=== PATIENT | female | born 1955 | race Caucasian/White ===

== ENCOUNTER 2023-09-16 10:22 | Outpatient (REF) | payer MEDICARE, MEDICAID, SELFPAY ==
--- NOTE | ~2023-09-16 | XR_ITS ---
EXAMINATION: XR FOOT, LEFT CLINICAL INFORMATION: Left foot pain and swelling for 5 days without injury COMPARISON: None available. TECHNIQUE: AP, lateral, and oblique views of the left foot. FINDINGS: The bones and soft tissues are unremarkable with the exception of a plantar calcaneal spur and some mild enthesopathy at the insertion of the Achilles tendon. No fracture. Alignment is anatomic. Joint spaces are maintained. XR/XR foot LT min 3V IMPRESSION: No acute finding. Incidental note made of a plantar calcaneal spur and some mild enthesopathy at the insertion of the Achilles tendon.
[2023-09-16 12:16] LABS: Uric Acid 5.4 mg/dL (2.4-5.7)
== END 2023-09-16 10:23 | disposition home or self-care (01) ==
LOC: HO.HHCL 10:22
PROVIDERS: Visit Provider Nurse Practitioner Family
DX: M79.672 Pain in left foot (principal)
CPT/HCPCS: 36415; 73630; 84550

== ENCOUNTER 2023-10-20 18:09 | Outpatient (REF) | payer MEDICARE, MEDICAID, SELFPAY ==
[2023-10-20 18:37] LABS: Appearance Urine Clear; Color Urine Yellow; Glucose Urine UA Negative (Negative); Leukocyte Esterase Urine Negative (Negative); Nitrite Urine Negative (Negative); PH 7.5 (5.0-9.0); Specific Gravity - Urine <= 1.005 (1.005-1.025); Urine Blood Negative (Negative); Urine Ketones Negative (Negative); Urine Protein Negative (Neg-Trace)
== END 2023-10-20 18:10 | disposition home or self-care (01) ==
LOC: HO.HHCLNP 18:09
PROVIDERS: Visit Provider Emergency Medicine
DX: R39.9 Unspecified symptoms and signs involving the genitourinary system (principal)
CPT/HCPCS: 81003

== ENCOUNTER 2024-04-11 10:56 | Outpatient (REF) | payer MEDICARE, MEDICAID, SELFPAY ==
[2024-04-11 14:07] LABS: Creatinine Urine 227.01 mg/dL; Microalbum/Creatinine Ratio Ur 7.9 ug/mg cr (<30)
[2024-04-11 14:10] LABS: Alanine Aminotransferase 17 U/L (0-31); Albumin Level 4.6 g/dL (3.5-5.0); Alkaline Phosphatase 79 U/L (39-117); Anion Gap 14 (12-20); Aspartate Amino Transferase 20 U/L (5-31); Bilirubin Total 0.4 mg/dL (0.0-1.0); Blood Urea Nitrogen 7 mg/dL (9-16); Calcium 10.1 mg/dL (8.4-10.2); Carbon Dioxide 27 mmol/L (22-29); Chloride 104 mmol/L (96-108); Cholesterol 137 mg/dL (<200); Estimated Glomerular Filt Rate > 60; Glucose Random 114 mg/dL (60-115); HDL Cholesterol 75 mg/dL (>40); LDL Cholesterol Calculated 48 mg/dL (<100); Potassium 3.9 mmol/L (3.3-5.1); Sodium 141 mmol/L (135-145); Total Protein 7.3 g/dL (6.5-8.0); Triglycerides 73 mg/dL (<150)
[2024-04-11 14:35] LABS: Reflex LDLD? No
== END 2024-04-11 10:57 | disposition home or self-care (01) ==
LOC: HO.HHCL 10:56
PROVIDERS: Visit Provider Internal Medicine
DX: R10.11 Right upper quadrant pain (principal); E11.9 Type 2 diabetes mellitus without complications
CPT/HCPCS: 36415; 80053; 80061; 82043; 82570

== ENCOUNTER 2024-11-21 14:29 | Outpatient (REF) | payer MEDICARE, MEDICAID, SELFPAY ==
[2024-11-21 16:08] LABS: Appearance Urine Clear; Color Urine Yellow; Glucose Urine UA Negative (Negative); Leukocyte Esterase Urine Small (1+) (Negative); Nitrite Urine Negative (Negative); Specific Gravity - Urine <= 1.005 (1.005-1.025); UMIC TRIGGER UACC YES; Urine Blood Negative (Negative); Urine Ketones Negative (Negative); Urine Protein Negative (Neg-Trace)
[2024-11-21 16:10] LABS: Bacteria Urine 4+ (None Seen); Hyaline Casts Urine 0-2 /LPF (0-2); RBC Urine 0-2 /HPF (0-2); Squamous Epithelial Cell Urine 0-2 /HPF (0-2); UACC Culture Trigger YES
== END 2024-11-21 14:30 | disposition home or self-care (01) ==
LOC: HO.HHCL 14:29
PROVIDERS: Visit Provider Student in an Organized Health Care Education/Training Program
DX: R30.0 Dysuria (principal)
CPT/HCPCS: 81001; 87086; 87088; 87186

== ENCOUNTER 2025-06-26 14:40 | Outpatient (REF) | payer MEDICARE, MEDICAID, SELFPAY ==
--- OUTSIDE RECORDS SUMMARY | 2025-06-26 14:20 | XMS_ITS | Encounter Summary ---
Author Organization [employer] Address [address] [place] [address] [address] [place] [address] Care Team Providers Care Watch Repair Technician Name Role Phone Faviola Boyce MD Primary Care Provide r Reason for Referral * Imaging (Routine) - Authorized Specialty Diagnoses / Procedures Referred By Contac t Referred To Contact Radiology Diagnoses AF (amaurosis fugax) Procedures MR Brain w/o Contrast Sebastián Leal MD [address] [place], [place] Phone: tel: fax: [address] [address] Phone: tel: fax: Referral ID Status Reason Start Date Expiration Date V isits Requested Visits Authorized [id number] Authorized 06/26/2025 06/26/2026 1 1 * Imaging (Routine) - Authorized Specialty Diagnoses / Procedures Referred By Contac t Referred To Contact Cardiology Diagnoses AF (amaurosis fugax) Procedures Vascular US carotid artery duplex bilateral Sebasitán Leal MD [address] [place] [address] Phone: tel: fax: [address] [address] Phone: tel: fax: Referral ID Status Reason Start Date Expiration Date Visits Requested Visits Authorized [id number] Authorized Perform Procedure 06/26/2026 1 1 Reason for Visit * Reason Comments transient bilateral visual loss Encounter Details Date Type Department Care Team (Late st Contact Info) Description 06/26/2025 2:20 PM EST Office Visit [facility] [address] [address] Name, MD Sebastián [address] [place] [address] AF (amaurosis fugax) (Primary Dx) Social History Tobacco Use Types Packs/Day Years Used Date Smoking Tobacco: Never Smokeless Tobacco: Never Tobacco Cessation:Counseling Given: Not Answered Alcohol Use Standard Drinks/Week Comments Never 0 (1 standard drink = 0.6 oz pur e alcohol) Depression Answer Date Recorded Patient Health Questionnaire-9 Score 0 08/21/2024 Patient Health Questionnaire-9 Score 0 08/21/2024 Last PHQ-9: Questionnaire Data Not on file 0 08/21/2024 Housing Stability Answer Date Recorded What is your housing situation today? I have marcelo shepherd 08/21/[address] you li ve. Do you have problems with any of the following? None of the above 08/21/2024 Food Insecurity Answer Date Recorded Within the past 12 months, y ou worried that your food would run out before you got money to buy more: Never True 08/21/2024 Within the past 12 months,th e food you bought just didn't last and you didn't have enough money to get more: Never True Transportation Answer Date Recorded In the past 12 months, has l ack of transportation kept you from medical appts, meetings, work or from getting things needed for daily living? No 08/21/2024 Utilities Answer Date Recorded In the past 12 months, has t he electric, gas, oil or water company threatened to shut off services in your home? No 08/21/2024 Depression Answer Date Recorded Patient Health Questionnaire-2 Score 0 08/21/2024 Internet Access Answer Date Recorded Internet Access Q1 Yes 08/21/2024 Internet Access Q2 Not on file 08/21/2024 Comments No Sex and Gender Information Value Date Recorded Sex Assigned at Female 04/27/2022 10:14 AM EDT Legal Sex Female 10:14 AM EDT Gender Identity Female 04/27/2022 10:14 AM EDT Sexual Orientation Straight 04/27/2022 10 :14 AM EDT documented as of this encounter Last Filed Vital Signs Vital Sign Reading Time Taken Comments Blood Pressure 128/78 06/26/2025 2:17 PM EST Pulse 90 06/26/2025 2:17 PM EST Temperature 36.6 C (97.9 F) 06/26/2025 2:17 PM EST Respiratory Rate 16 06/26/2025 2:17 PM EST Oxygen Saturation 97% 06/26/2025 2:17 PM EST Inhaled Oxygen Concentration - - Weight 72.6 kg (160 lb) 06/26/2025 2:17 PM EST Height - - Body Mass Index 29.26 06/12/2025 1:00 PM EST documented in this encounter Progress Notes * Sebastián Leal MD - 06/26/2025 2:20 PM EST Subjective Patient ID: Faviola Bennett is a 70 y.o. female who presents for transient bilateral visual loss. Patient is asymptomatic during her visit but complains of transient bilateral visual loss that can last for several minutes. This has been going on and off for several months. She has a personal history of diabetes, hypertension, high cholesterol. Her last eye exam without diabetic retinopathy lastyear. She denies significant headaches, no jaw claudication, she does not have any focal weakness or sensory deficit. Her vision is not affected today. Review of Systems Constitutional: Negative for chills and fever. HENT: Negative for sore throat. Respiratory: Negative for cough, shortness of breath and wheezing. Cardiovascular: Negative for chest pain, palpitations and leg swelling. Gastrointestinal: Negative for abdominal pain. Neurological: Negative for weakness. Objective Vitals: 06/26/25 1417 BP: 128/78 BP Location: Right arm Patient Position: Sitting BP Cuff Size: Adult Pulse: 90 Resp: 16 Temp: 97.9 ??F (36.6 ??C) TempSrc: Temporal SpO2: 97% Weight: 160 lb (72.6 kg) Physical Exam Constitutional: Appearance: Normal appearance. Eyes: Pupils: Pupils are equal, round, and reactive to light. Cardiovascular: Rate and Rhythm: Normal rate and regular rhythm. Heart sounds: No murmur heard. No gallop. Pulmonary: Effort: Pulmonary effort is normal. No respiratory distress. Breath sounds: Normal breath sounds. No wheezing. Musculoskeletal: Right lower leg: No edema. Left lower leg: No edema. Neurological: General: No focal deficit present. Mental Status: She is alert. Motor: No weakness. Assessment/Plan Diagnoses and all orders for this visit: AF (amaurosis fugax) Comments: Patient presents with symptoms concerning for bilateral amaurosis fugax. She is asymptomatic during her visit. She is recommended evaluation with testing listed below including sed rate and CRP to set rule out temporal arteritis Carotid ultrasound MRI of the brain Further recommendation based on the results. She is encouraged to continue using her current medications as prescribed. She is recommended to go for fasting blood work ordered by her PCP. Orders: - Vascular US carotid artery duplex bilateral; Future - Sed Rate by Modified Westergren; Future - C-reactive Protein; Future - MR Brain w/o Contrast; Future Future Appointments Date Time Provider Department Center 08/27/2025 11:30 AM Faviola Kelly MD [facility] 10/09/2025 1:00 PM Shabana Carbone OD [facility] documented in this encounter Plan of Treatment Upcoming Encounters Date Type Department Care Team (Late st Contact Info) Description 08/27/2025 11:30 AM EST Office Visit [facility] [address] [place] [address] Faviola Boyce MD [address] [place] [address] 10/09/2025 1:00 PM EDT Office Visit [facility] [address] [place], [place] [phone] Shabana Carbone OD [address] [place] [address] Scheduled Orders Name Type Priority Associated Diagnoses Orde r Schedule Sed Rate by Modified Westergren Lab Routine AF (amaurosis fugax) Expected: 06/26/2025, Expires: 06/26/2026 MR Brain w/o Contrast Imaging Routine AF (amaurosis fugax) Expected: 06/26/2025, Expires: 06/26/2026 documented as of this encounter Goals Goal Patient Goal Type Associated Problems Recent Progress Patient-Stated? Author Help patients manage their type 2 diabetes Care Plan Help patients manage their type 2 diabetes No Diane Pak Weekly blood pressure task Care Plan Weekly blood pressure task No Diane Pak Help patients manage their type 2 diabetes Care Plan Help patients manage their type 2 diabetes No Diane Pak Patient has chronic kidney disease Care Plan Patient has chronic kidney disease No Diane Pak Weekly blood pressure task Care Plan Weekly blood pressure task No Diane Pak Patient has chronic kidney disease Care Plan Patient has chronic kidney disease No Diane Pak Weekly blood pressure task Care Plan Weekly blood pressure task No Nicole Ng Weekly blood pressure task Care Plan Weekly blood pressure task No Nicole Ng Patient has chronic kidney disease Care Plan Patient has chronic kidney disease No Nicole Ng Patient has chronic kidney disease Care Plan Patient has chronic kidney disease No Nicole Ng Weekly blood pressure task Care Plan Weekly blood pressure task No Marisabel Koenig Weekly blood pressure task Care Plan Weekly blood pressure task No Marisabel Koenig Patient has chronic kidney disease Care Plan Patient has chronic kidney disease No Marisabel Koenig Patient has chronic kidney disease Care Plan Patient has chronic kidney disease No Marisabel Koenig Weekly blood pressure task Care Plan Weekly blood pressure task No Bethany Martinez [place] Weekly blood pressure task Care Plan Weekly blood pressure task No Bethany Martinez [place] Patient has chronic kidney disease Care Plan Patient has chronic kidney disease No Bethany Martinez [place] Patient has chronic kidney disease Care Plan Patient has chronic kidney disease No Bethany Martinez MA Weekly blood pressure task Care Plan Weekly blood pressure task No Brian Hutchinson Weekly blood pressure task Care Plan Weekly blood pressure task No Brian Hutchinson Patient has chronic kidney disease Care Plan Patient has chronic kidney disease No Brian Hutchinson Patient has chronic kidney disease Care Plan Patient has chronic kidney disease No Brian Hutchinson Weekly blood pressure task Care Plan Weekly blood pressure task No Keri Barrientos [place] Weekly blood pressure task Care Plan Weekly blood pressure task No Yamini gordon [place], [place] Patient has chronic kidney disease Care Plan Patient has chronic kidney disease No Yamini gordon [place] Patient has chronic kidney disease Care Plan Patient has chronic kidney disease No Yamini gordon [place] Weekly blood pressure task Care Plan Weekly blood pressure task No Brent Blanton Weekly blood pressure task Care Plan Weekly blood pressure task No Brent Blanton Patient has chronic kidney disease Care Plan Patient has chronic kidney disease No Brent Blanton Patient has chronic kidney disease Care Plan Patient has chronic kidney disease No Brent Blanton Weekly blood pressure task Care Plan Weekly blood pressure task No TarShabana gomez, [place] Weekly blood pressure task Care Plan Weekly blood pressure task No TarkaArashShabana, OD Patient has chronic kidney disease Care Plan Patient has chronic kidney disease No TarkaShabana, OD Patient has chronic kidney disease Care Plan Patient has chronic kidney disease No Shabana Carbone OD Weekly blood pressure task Care Plan Weekly blood pressure task No Angela Martinez RN Weekly blood pressure task Care Plan Weekly blood pressure task No Angela Martinez RN Patient has chronic kidney disease Care Plan Patient has chronic kidney disease No Angela Martinez RN Patient has chronic kidney disease Care Plan Patient has chronic kidney disease No Angela Martinez RN Weekly blood pressure task Care Plan Weekly blood pressure task No Kathy Matthews Weekly blood pressure task Care Plan Weekly blood pressure task No Kathy Matthews Patient has chronic kidney disease Care Plan Patient has chronic kidney disease No Kathy Matthews Patient has chronic kidney disease Care Plan Patient has chronic kidney disease No Byron Kathy Weekly blood pressure task Care Plan Weekly blood pressure task No Elvira Meyer LPN Weekly blood pressure task Care Plan Weekly blood pressure task No Elvira Meyer LPN Patient has chronic kidney disease Care Plan Patient has chronic kidney disease No Elvira Meyer LPN Patient has chronic kidney disease Care Plan Patient has chronic kidney disease No Elvira Meyer LPN Weekly blood pressure task Care Plan Weekly blood pressure task No [place] Weekly blood pressure task Care Plan Weekly blood pressure task No Cynthia [place] Patient has chronic kidney disease Care Plan Patient has chronic kidney disease No Cynthia AndersonsmNASRIN gallo Patient has chronic kidney disease Care Plan Patient has chronic kidney disease No Taran Anderson [place] documented as of this encounter Procedures Procedure Name Priority Date/Time Associated Diagnosis Comments C-REACTIVE PROTEIN Routine 06/26/2025 2: 53 PM EST AF (amaurosis fugax) documented in this encounter Results * C-reactive Protein (06/26/2025 2:53 PM EST) C Reactive Protein 0.29 < or = 0.50 mg/dL [facility] Blood Venous blood specimen / Unknown 06/26/2025 2:53 PM EST 06/26/2025 4:16 PM EST us Sebastián Leal MD LAB BLOOD ORDERABLES Final Resul t Performing Organization Address City/State/[facility] Co de Phone Number [facility] [address] [place] [phone] documented in this encounter Visit Diagnoses Diagnosis AF (amaurosis fugax)- Primary Transient arterial occlusion of retina documented in this encounter Additional Health Concerns Active Problems Noted Date Diagnosed Date Help patients manage their type 2 diabetes 05/15 Weekly blood pressure task 05/15/2025 Help patients manage their type 2 diabetes 05/15 Patient has chronic kidney disease 05/15/2025 Weekly blood pressure task 05/15/2025 Patient has chronic kidney disease 05/15/2025 Weekly blood pressure task 06/01/2025 Weekly blood pressure task 06/01/2025 Patient has chronic kidney disease 06/01/2025 Patient has chronic kidney disease 06/01/2025 Weekly blood pressure task 06/08/2025 Weekly blood pressure task 06/08/2025 Patient has chronic kidney disease 06/08/2025 Patient has chronic kidney disease 06/08/2025 Weekly blood pressure task 06/11/2025 Weekly blood pressure task 06/11/2025 Patient has chronic kidney disease 06/11/2025 Patient has chronic kidney disease 06/11/2025 Weekly blood pressure task 06/11/2025 Weekly blood pressure task 06/11/2025 Patient has chronic kidney disease 06/11/2025 Patient has chronic kidney disease 06/11/2025 Weekly blood pressure task 06/12/2025 Weekly blood pressure task 06/12/2025 Patient has chronic kidney disease 06/12/2025 Patient has chronic kidney disease 06/12/2025 Weekly blood pressure task 06/13/2025 Weekly blood pressure task 06/13/2025 Patient has chronic kidney disease 06/13/2025 Patient has chronic kidney disease 06/13/2025 Weekly blood pressure task 06/18/2025 Weekly blood pressure task 06/18/2025 Patient has chronic kidney disease 06/18/2025 Patient has chronic kidney disease 06/18/2025 Weekly blood pressure task 06/26/2025 Weekly blood pressure task 06/26/2025 Patient has chronic kidney disease 06/26/2025 Patient has chronic kidney disease 06/26/2025 Weekly blood pressure task 06/26/2025 Weekly blood pressure task 06/26/2025 Patient has chronic kidney disease 06/26/2025 Patient has chronic kidney disease 06/26/2025 Weekly blood pressure task 06/26/2025 Weekly blood pressure task 06/26/2025 Patient has chronic kidney disease 06/26/2025 Patient has chronic kidney disease 06/26/2025 Weekly blood pressure task 06/26/2025 Weekly blood pressure task 06/26/2025 Patient has chronic kidney disease 06/26/2025 Patient has chronic kidney disease 06/26/2025 Assessment Noted Time PHQ-9 Depression Total Score: 0 08/21/19 11:05 AM EST documented as of this encounter Care Teams Watch Repair Technician Relationship Specialty Start Date End Date Faviola Boyce MD [address] [place] [id number] PCP - General Internal Medicine 02/27/25 documented as of this encounter
[2025-06-26 16:25] LABS: MANUAL DIFF FLAG NO
[2025-06-26 16:33] LABS: Hematocrit 41.0 % (37.0-47.0); Hemoglobin 13.9 g/dl (12.0-16.0); Imm Gran Abs Auto 0.04 X10*3/uL (0.00-0.03); Imm Gran Pct Auto 0.4 % (0.0-0.4); Lymphocytes Absolute Auto 3.3 X10*3/uL (1.2-4.9); Mean Corpuscular HGB Conc 33.9 g/dl (31.0-35.0); Mean Corpuscular Hemoglobin 30.0 pg (27.0-33.0); Mean Corpuscular Volume 88.4 fL (80.0-98.0); NRBC Abs Auto 0.000 X10*3/uL (0.0-0.012); NRBC Pct Auto 0.0 /100WBC (0.0-0.2); Platelet Count 354 X10*3/uL (160-400); Red Blood Count 4.64 X10*6/uL (4.20-5.50); White Blood Count 11.2 X10*3/uL (4.8-10.8)
[2025-06-26 16:54] LABS: Alanine Aminotransferase 33 U/L (0-31); Albumin Level 5.4 g/dL (3.5-5.0); Alkaline Phosphatase 88 U/L (39-117); Anion Gap 15 (12-20); Aspartate Amino Transferase 40 U/L (5-31); Blood Urea Nitrogen 10 mg/dL (9-16); Calcium 10.3 mg/dL (8.4-10.2); Carbon Dioxide 26 mmol/L (22-29); Chloride 104 mmol/L (96-108); Cholesterol 157 mg/dL (<200); Estimated Glomerular Filt Rate > 60; HDL Cholesterol 84 mg/dL (>40); Potassium 3.5 mmol/L (3.3-5.1); Sodium 141 mmol/L (135-145); Total Protein 8.2 g/dL (6.5-8.0); Triglycerides 88 mg/dL (<150)
[2025-06-26 16:56] LABS: Microalbum/Creatinine Ratio Ur 183.0 ug/mg cr (<30)
--- OUTSIDE RECORDS SUMMARY | 2025-06-26 18:19 | XMS_ITS | Encounter Summary ---
Author Organization [employer] Address [address] [facility] [address] [place] [address] Care Team Providers Care Events Associate Name Role Phone Name, Sebastián MENDOZA Primary Care Provider [phone] [facility] Primary Care Provider [phone] Faviola Boyce MD Primary Care Provide r Reason for Visit * Reason Onset Date Comments Appointment Request 01/14/2024 Encounter Details Date Type Department Care Team ([facility] st Contact Info) Description 01/14/2024 Telephone [facility] [address] [place], [place] [phone] Name, MD Sebastián [address] [place], [place] [phone] Appointment Request Social History Tobacco Use Types Packs/Day Years Used Date Smoking Tobacco: Never Smokeless Tobacco: Never Alcohol Use Standard Drinks/Week Comments Never 0 (1 standard drink = 0.6 oz pur e alcohol) Depression Answer Date Recorded Patient Health Questionnaire-9 Score 25 06/15/2022 Housing Stability Answer Date Recorded What is your housing situation today? I have marcelo shepherd 04/14/[address] you li ve. Do you have problems with any of the following? None of the above 04/14/2023 Food Insecurity Answer Date Recorded Within the past 12 months, y ou worried that your food would run out before you got money to buy more: Never True 04/14/2023 Within the past 12 months,th e food you bought just didn't last and you didn't have enough money to get more: Never True Transportation Answer Date Recorded In the past 12 months, has l ack of transportation kept you from medical appts, meetings, work or from getting things needed for daily living? No 04/14/2023 Utilities Answer Date Recorded In the past 12 months, has t he electric, gas, oil or water company threatened to shut off services in your home? No 04/14/2023 Depression Answer Date Recorded Patient Health Questionnaire-2 Score 6 06/15/2022 Comments Unknown Sex and Gender Information Value Date Recorded Sex Assigned at Female 04/27/2022 10:14 AM EDT Legal Sex Female 10:14 AM EDT Gender Identity Female 04/27/2022 10:14 AM EDT Sexual Orientation Straight 04/27/2022 10 :14 AM EDT documented as of this encounter Miscellaneous Notes * Telephone Encounter - Melo Pak - 01/14/2024 11:13 AM EDT Tc from pt calling in regards to today's TP and is requesting to reschedule. Please contact pt at [phone]. French Speaker (Accepted Curtain Cutter) documented in this encounter Plan of Treatment Upcoming Encounters Date Type Department Care Team (Late st Contact Info) Description 08/27/2025 11:30 AM EST Office Visit [facility] [address] [place] [address] Faviola Boyce MD [address] [place] [address] 10/09/2025 1:00 PM EDT Office Visit [facility] OPTOMETRY [address] [place] [address] Shabana Carbone, OD [address] [place] [address] documented as of this encounter Visit Diagnoses Not on filedocumented in this encounter Additional Health Concerns Assessment Noted Time PHQ-9 Depression Total Score: 25 022 1:54 PM EST documented as of this encounter Care Teams Events Associate Relationship Specialty Start Date End Date Name, MD Sebastián [address] [place] [phone] PCP - General Internal Medicine 09/28/23 08/20/24 [place] FNP [address] [place] [phone] PCP - General Family Medicine 08/21/24 02/26/25 Faviola Boyce MD [address] [place] [id number] PCP - General Internal Medicine 02/27/25 documented as of this encounter
--- OUTSIDE RECORDS SUMMARY | 2025-06-26 18:19 | XMS_ITS | Encounter Summary ---
Author Organization [employer] [facility] Address [address] [place] [address] 7t [place] [address] Care Team Providers Care Final Assembler Boat Name Role Phone Name, Sebastián MENDOZA Primary Care Provider [phone] [facility] Primary Care Provider [phone] Name, Sebastián MENDOZA Primary Care Provider [phone] [facility] Primary Care Provider [phone] Faviola Boyce MD Primary Care Provide r Encounter Details Date Type Department Care Team ([facility] Contact Info) Description 06/09/2022 Orders Only [facility] [address] [place] [address] Courtney Zelaya LPN Social History Tobacco Use Types Packs/Day Years Used Date Smoking Tobacco: Never Assessed Comments Unknown Sex and Gender Information Value Date Recorded Sex Assigned at Female 04/27/2022 10:14 AM EDT Legal Sex Female 10:14 AM EDT Gender Identity Female 04/27/2022 10:14 AM EDT Sexual Orientation Straight 04/27/2022 10 :14 AM EDT COVID-19 Exposure Response Date Recorded In the last 10 days, have yo u been in contact with someone who was confirmed or suspected to have Coronavirus/COVID-19? No / Unsure 06/10/2022 3:43 PM EST documented as of this encounter Plan of Treatment Upcoming Encounters Date Type Department Care Team (Late Contact Info) Description 08/27/2025 11:30 AM EST Office Visit [facility] [address] [place], [place] [phone] Faviola Boyce MD [address] [place] [address] 10/09/2025 1:00 PM EDT Office Visit [facility] [address] [place] [address] TarShabana gomez, OD [address] [place] [address] documented as of this encounter Procedures Procedure Name Priority Date/Time Associated Diagnosis Comments COMPREHENSIVE METABOLIC PANEL, FASTING Routine 09/15/2022 1:00 PM EDT VITAMIN D,25-OH,TOTAL,IA Routine 09/15/2022 1:00 PM EDT TSH W/REFLEX TO FT4 Routine 09/15/2022 1 :00 PM EDT CBC WITH AUTO DIFFERENTIAL Routine 09/15/2022 1:00 PM EDT HEMOGLOBIN A1C Routine 09/15/2022 1:00 PM EDT LIPID PANEL, STANDARD Routine 09/15/2022 1:00 PM EDT ALBUMIN, RANDOM URINE W/CREATININE Routine 09/15/2022 12:55 PM EDT URINALYSIS WITH REFLEX MICROSCOPIC Routine 09/15/2022 12:55 PM EDT documented in this encounter Results * TSH W/Reflex to FT4 (09/15/2022 1:00 PM EDT) TSH reflex Free T4 1.23 0.32 - 4.0 uIU/mL [facility] 09/15/2022 1:00 PM EDT 09/15/2022 1:00 PM EDT [facility] External Provider LAB BLO OD ORDERABLES Final Result Performing Organization Address City/State/[facility] Co de Phone Number [facility] [address] [place] [address] [phone] * Vitamin D, 25-Hydroxy, Total, Immunoassay (09/15/2022 1:00 PM EDT) Vitamin D 25-OH Total 13.0 >30 ng/mL [facility] Comment:Health Based Referen ce Values*< 20 ng/mL Njnjcrdiy13-23 ng/mL Insufficient> 30 ng/mL Sufficient*Bobby ABBASI. N Engl J Med. 2007;357:266-280Care must be taken in interpreting Vitamin D results fromdifferent laboratories and methodologies. Published datademonstrated that results from patients undergoinghemodialysis may show a negative bias when tested withvarious automated 25-OH vitamin D assays when compared toLC-MS/MS.When testing samples from patients whose predominant form ofVitamin D is Vitamin D2, such as patients receiving VitaminD2 supplementation, results that are subtherapeutic shouldbe confirmed with another method such as LC-MS/MS. 09/15/2022 1:00 PM EDT 09/15/2022 1:00 PM EDT [facility] External Provider LAB BLO OD ORDERABLES Final Result Performing Organization Address [facility] Co de Phone Number [facility] [address] [place] [address] [phone] * Hemoglobin A1c (09/15/2022 1:00 PM EDT) Hemoglobin A1c 7.1 % [facility] Comment:Hemoglobin A1C Refer ence Range Adults: 4.8 - 6.0 % Non diabetic: < 6.0 % Goal: < 7.0 %Additional Action Suggested: > 8.0 %Note: Hemoglobin A1c results are invalid for patients with abnormal amounts of HbF. Blood transfusions may impact the HbA1c concentration in the patient sample. Estimated Average Glucose 157 mg/dL [facility] Comment:eAG = Estimated ave rage glucose which is %A1C expressed asaverage glucose, using the formula of the I8B-FlodzwuPquxdow Glucose study (ADAG), Diabetes Care, Vol.31,#8,Jan. 2007 09/15/2022 1:00 PM EDT 09/15/2022 1:00 PM EDT [facility] External Provider LAB BLO OD ORDERABLES Final Result Performing Organization Address [facility]/ZIP Co de Phone Number [facility] [address] [place] [address] [phone] * Lipid Panel, Standard (09/15/2022 1:00 PM EDT) Triglycerides 80 mg/dL [facility] Comment:Desirable Triglyceri de: less than 150 mg/dLBorderline High Triglyceride 150-199 mg/dLHigh Triglyceride: 200-499 mg/dLVery High Triglyceride: greater than or equal to 5OO mg/dL Cholesterol 136 mg/dL [facility] Comment:Desirable Cholestero l: less than 200 mg/dLBorderline High Cholesterol: 200-239 mg/dLHigh Cholesterol: greater than 239 mg/dL LDL Cholesterol Calculated 46 mg/dl [facility] Comment:Desirable LDL: less than 100 mg/dLNear Optimal/Above Optimal LDL: 110- 129 mg/dLBorderline High LDL: 130-159 mg/dLHigh LDL: 160-189 mg/dLVery High LDL: greater than or equal to 190 mg/dL HDL Cholesterol 74 mg/dL [facility] Comment:Desirable HDL: great er than 40 mg/dL Note: This HDL assay may give artificially low results in patients with liver disease. 09/15/2022 1:00 PM EDT 09/15/2022 1:00 PM EDT [facility] External Provider LAB BLO OD ORDERABLES Final Result Performing Organization Address [facility]/ZIP Co de Phone Number [facility] [address] [place] [address] [phone] * (ABNORMAL) Comprehensive Metabolic Panel, Fasting (09/15/2022 1:00 PM EDT) Pathologist [facility] Sodium 141 135 - 145 mmol/L [facility] Potassium 4.8 3.3 - 5.1 mmol/L [facility] Chloride 103 96 - 108 mmol/L [facility] Carbon Dioxide 29 22 - 29 mmol/L [facility] Anion Gap 14 12 - 20 [facility] Urea Nitrogen (BUN) 6(L) 9 - 16 mg/dL [facility] Creatinine, Serum 0.69 0.5 - 1.4 mg/dL [facility] Estimated Glomerular Filt Rate >60 [facility] Comment:NOTE: For -Am erican individuals, multiply the result by 1.210.Chronic Kidney Disease: Estimated GFR < 60 mL/min/1.84g5Xatfoz Kidney Disease: Estimated GFR < 15 mL/min/1.73m2 Glucose Fasting 122(H) 60 - 99 mg/dL [facility] Comment:A fasting glucose fr om 100-125 mg/dl is considered impaired(pre-diabetes). Calcium 10.4(H) 8.4 - 10.2 mg/dL [facility] Bilirubin, Total 0.5 0.0 - 1.0 mg/dL [facility] Aspartate Amino Transferase 20 5 - 31 U/L [facility] Alanine Aminotransferase 18 0 - 31 U/L [facility] Total Protein 7.2 6.5 - 8.0 g/dL [facility] Albumin Level 4.8 3.5 - 5.0 g/dL [facility] Alkaline Phosphatase 70 39 - 117 U/L [facility] 09/15/2022 1:00 PM EDT 09/15/2022 1:00 PM EDT [facility] External Provider LAB BLO OD ORDERABLES Final Result [facility] [address] [place] [address] [phone] * (ABNORMAL) CBC auto differential (09/15/2022 1:00 PM EDT) Pathologist [facility] White Blood Count 7.8 4.8 - 10.8 X10*3/uL [facility] Red Blood Count 4.35 4.20 - 5.50 X10*6/uL [facility] Hemoglobin 13.1 12.0 - 16.0 g/dl [facility] Hematocrit 38.5 37.0 - 47.0 % [facility] Mean Corpuscular Volume 88.5 80.0 - 98.0 fL [facility] Mean Corpuscular Hemoglobin 30.1 27.0 - 33.0 pg [facility] Mean Corpuscular HGB Conc 34.0 31.0 - 35.0 g/dl [facility] Red Cell Distribution Width 13.2 11.0 - 16.0 % [facility] Platelet Count 311 160 - 400 X10*3/uL [facility] Mean Platelet Volume 9.2(L) 9.4 - 12.3 fL [facility] Neutrophils Percent Auto 45.0 45 - 73 % [facility] Imm Gran Pct Auto 0.3 0.0 - 0.4 % [facility] Lymphocytes Percent Auto 44.0(H) 20 - 40 % [facility] Monocytes Percent Auto 6.4 2 - 11 % [facility] Eosinophils Percent Auto 3.5 0 - 4 % [facility] Basophils Percent Auto 0.8 0 - 2 % [facility] NRBC Pct Auto 0.0 0.0 - 0.2 /100WBC [facility] Neutrophils Absolute Auto 3.5 2.0 - 8.3 x10*3/uL [facility] Imm Gran Abs Auto 0.02 0.00 - 0.03 X10*3/uL [facility] Lymphocytes Absolute Auto 3.4 1.2 - 4.9 X10*3/uL [facility] Monocytes Absolute Auto 0.5 0.1 - 1.2 X10*3/uL [facility] Eosinophils Absolute Auto 0.3 0.0 - 0.4 X10*3/uL [facility] Basophils Absolute Auto 0.1 0.0 - 0.2 X10*3/uL [facility] NRBC Abs Auto 0.000 0.0 - 0.012 X10*3/uL [facility] 09/15/2022 1:00 PM EDT 09/15/2022 1:00 PM EDT [facility] External Provider LAB BLO OD ORDERABLES Final Result Performing Organization Address [facility] de Phone Number [facility] [address] [place] [address] [phone] * Albumin, Random Urine W/Creatinine (09/15/2022 12:55 PM EDT) Creatinine, Urine 94.84 mg/dL [facility] Microalbumin Urine 53.0 mg/L [facility] Microalbum Creatinine Ratio Ur 55.8 ug/mg cr [facility] Comment:Albumin/Creatinine R atio Reference Ranges: Normal: < 30 ug/mg creatinine Microalbuminuria: 30 - 300 ug/mg creatinineClinical Albuminuria: > 300 ug/mg creatinine 09/15/2022 12:5 5 PM EDT 09/15/2022 3:51 PM EDT [facility] External Provider LAB URI NE ORDERABLES Final Result Performing Organization Address [facility] Co de Phone Number [facility] [address] [place] [phone] * Urinalysis with reflex microscopic (09/15/2022 12:55 PM EDT) Color Urine Yellow [facility] Appearance Urine Clear [facility] PH 7.5 5.0 - 9.0 [facility] Glucose Urine UA Negative Negative mg/dL [facility] Urine Blood Negative Negative [facility] Specific [place] - Urine 1.010 1.005 - 1.025 [facility] Urine Protein Trace Neg-Trace mg/dL [facility] Urine Ketones Negative Negative mg/dL [facility] Nitrite Urine Negative Negative [facility] Leukocyte Esterase Urine Negative Negative [facility] 09/15/2022 12:5 5 PM EDT 09/15/2022 3:51 PM EDT Narrative [facility] - 09/15/2022 4:10 PM EDT Urine, Clean Catch us [facility] External Provider LAB URI NE ORDERABLES Final Result [facility] [address] [place] [address] [phone] documented in this encounter Visit Diagnoses Not on filedocumented in this encounter Care Teams Final Assembler Boat Relationship Specialty Start Date End Date Sebastián Leal MD [address] [place] [address] PCP - General Family Medicine 05/02/21 09/06/23 AristeoMary Ann hyman FNP [address] [place] [address] PCP - General Family Medicine 09/07/23 09/27/23 NameSebastián MD [address] [place] [address] PCP - General Internal Medicine 09/28/23 08/20/24 [place] FNP [address] [place] [address] PCP - General Family Medicine 08/21/24 02/26/25 Faviola Boyce MD [address] [place] [address] PCP - General Internal Medicine 02/27/25 documented as of this encounter
--- OUTSIDE RECORDS SUMMARY | 2025-06-26 18:19 | XMS_ITS | Encounter Summary ---
Author Organization [employer] Address [address] [facility] 7t [place] [address] Care Team Providers Care Lubrication Supervisor Name Role Phone Name, Sebastián MENDOZA Primary Care Provider [phone] [facility] Primary Care Provider [phone] Faviola Boyce MD Primary Care Provide r Reason for Visit * Reason Comments Med Refill Encounter Details Date Type Department Care Team (Late st Contact Info) Description 01/11/2024 Refill [facility] [address] [place], [place] [phone] Name, MD Sebastián [address] [place], [place] [phone] Gastro-esophageal reflux disease without esophagitis Social History Tobacco Use Types Packs/Day Years Used Date Smoking Tobacco: Never Smokeless Tobacco: Never Alcohol Use Standard Drinks/Week Comments Never 0 (1 standard drink = 0.6 oz pur e alcohol) Depression Answer Date Recorded Patient Health Questionnaire-9 Score 25 06/15/2022 Housing Stability Answer Date Recorded What is your housing situation today? I have marcelojonel shepherd 04/14/[address] you [...] AM EDT documented as of this encounter Plan of Treatment Upcoming Encounters Date Type Department Care Team (Late st Contact Info) Description 08/27/2025 11:30 AM EST Office Visit [facility] [address] [place] [address] Faviola Boyce MD [address] [place] [address] 10/09/2025 1:00 PM EDT Office Visit [facility] [address] [place] [address] Shabana Carbone, OD [address] [place] [address] documented as of this encounter Visit Diagnoses Diagnosis Gastro-esophageal reflux disease without esophagitis documented in this encounter Additional Health Concerns Assessment Noted Time PHQ-9 Depression Total Score: 25 022 1:54 PM EST documented as of this encounter Care Teams Lubrication Supervisor Relationship Specialty Start Date End Date Name, MD Sebastián [address] [place] [address] PCP - General Internal Medicine 09/28/23 08/20/24 [facility] [address] [place] [address] PCP - General Family Medicine 08/21/24 02/26/25 Faviola Boyce MD [address] [place] [address] PCP - General Internal Medicine 02/27/25 documented as of this encounter
--- OUTSIDE RECORDS SUMMARY | 2025-06-26 18:19 | XMS_ITS | Encounter Summary ---
Author Organization [employer] Address [address] [facility] 7t [place] [address] Care Team Providers Care Chief Dispatcher Name Role Phone Name, Sebastián MENDOZA Primary Care Provider [phone] [facility] Primary Care Provider [phone] Faviola Boyce MD Primary Care Provide r Reason for Visit * Reason Comments Med Refill Encounter Details Date Type Department Care Team (Late st Contact Info) Description 01/02/2024 Refill [facility] [address] [place], [place] [phone] Name, MD Sebastián [address] [place], [place] [phone] Secondary hypertension Social History Tobacco Use Types Packs/Day Years [...] Description 08/27/2025 11:30 AM EST Office Visit [facility] [address] [place] [address] Faviola Boyce MD [address] [place] [address] 10/09/2025 1:00 PM EDT Office Visit [facility] [address] [place], [place] [phone] Shabana Carbone, OD [address] [place] [address] documented as of this encounter Visit Diagnoses Diagnosis Secondary hypertension Other secondary hypertension, unspecified documented in this encounter Additional Health Concerns Assessment Noted Time PHQ-9 Depression Total Score: 25 022 1:54 PM EST documented as of this encounter Care Teams Chief Dispatcher Relationship Specialty Start Date End Date Name, MD Sebastián [address] [place] [address] [phone] PCP - General Internal Medicine 09/28/23 08/20/24 [place] FNP [address] [place] [address] PCP - General Family Medicine 08/21/24 02/26/25 Faviola Boyce MD [address] [place] [address] PCP - General Internal Medicine 02/27/25 documented as of this encounter
--- OUTSIDE RECORDS SUMMARY | 2025-06-26 18:20 | XMS_ITS | Encounter Summary ---
Author Organization [employer] Address [address] [facility] 7t [place] [address] Care Team Providers Care Pad Hand Name Role Phone [facility] Primary Care Provider [phone] Mel, Sebastián MENDOZA Primary Care Provider [facility] Primary Care Provider [phone] Faviola Boyce MD Primary Care Provide r Reason for Visit * Reason Onset Date Comments TP Appt 09/07/2023 Encounter Details Date Type Department Care Team ([facility] st Contact Info) Description 09/07/2023 Telephone [facility] [address] [place], [place] [phone] [facility] [address] [place], [place] [phone] TP Appt Social History Tobacco Use Types Packs/Day Years Used Date Smoking Tobacco: Never Smokeless Tobacco: Never Alcohol Use Standard Drinks/Week Comments Never 0 (1 standard drink = 0.6 oz pur e alcohol) Depression Answer Date Recorded Patient Health Questionnaire-9 Score 25 06/15/2022 Housing Stability Answer Date Recorded What is your housing situation today? I have marcelo cora 04/14/[address] you li [...] encounter Miscellaneous Notes * Telephone Encounter - Shazia Sow - 09/07/2023 11:30 AM EDT Call X3 to pt to advise about TP appt and check if pt wanted to keep appt with Name on 09/12, pt don't answer not able to leave a message. documented in this encounter Plan of Treatment Upcoming Encounters Date Type Department Care Team (Late st Contact Info) Description 08/27/2025 11:30 AM EST Office Visit [facility] [address] [place] [address] Faviola Boyce MD [address] [place] [address] 10/09/2025 1:00 PM EDT Office Visit [facility] [address] [place], [place] [phone] Shabana Carbone OD [address] [place] [address] documented as of this encounter Visit Diagnoses Not on filedocumented in this encounter Additional Health Concerns Assessment Noted Time PHQ-9 Depression Total Score: 25 022 1:54 PM EST documented as of this encounter Care Teams Pad Hand Relationship Specialty Start Date End Date [place] hyman [facility] [address] [place] [address] PCP - General Family Medicine 09/07/23 09/27/23 Sebastián Leal MD [address] [place] [address] PCP - General Internal Medicine 09/28/23 08/20/24 [place] Mary Ann [facility] [address] [place] [address] PCP - General Family Medicine 08/21/24 02/26/25 Faviola Boyce MD [address] [place] [address] PCP - General Internal Medicine 02/27/25 documented as of this encounter
--- OUTSIDE RECORDS SUMMARY | 2025-06-26 18:20 | XMS_ITS | Encounter Summary ---
Author Organization [employer] [facility] Address [address] [place] [address] 7t [place] [address] Care Team Providers Care Sap Mobility Architect Name Role Phone Name, Sebastián MENDOZA Primary Care Provider [phone] [facility] Primary Care Provider [phone] Name, Sebastián MENDOZA Primary Care Provider [phone] [facility] Primary Care Provider [phone] Faviola Boyce MD Primary Care Provide r Reason for Visit * Reason Comments Med Refill Encounter Details Date Type Department Care Team (Late st Contact Info) Description 12/31/2022 Refill [facility] [address] [place] [address] [phone] Tonie Harris, ANP [address] [place], [place] [phone] Secondary hypertension Social History Tobacco Use Types Packs/Day Years Used Date Smoking Tobacco: Never Smokeless Tobacco: Never Depression Answer Date Recorded Patient Health Questionnaire-9 Score 25 06/15/2022 Depression Answer Date Recorded Patient Health Questionnaire-2 [...] 08/27/2025 11:30 AM EST Office Visit [facility] [address] [place] [address] Faviola Boyce MD [address] [place] [address] 10/09/2025 1:00 PM EDT Office Visit [facility] [address] [place] [address] Shabana Carbone, OD [address] [place] [address] documented as of this encounter Visit Diagnoses Diagnosis Secondary hypertension Other secondary hypertension, unspecified documented in this encounter Additional Health Concerns Assessment Noted Time PHQ-9 Depression Total Score: 022 1:54 PM EST documented as of this encounter Care Teams Sap Mobility Architect Relationship Specialty Start Date End Date Name, MD Sebastián [facility] [place] [address] PCP - General Family Medicine 05/02/21 09/06/23 [place] [facility] [place] [address] PCP - General Family Medicine 09/07/23 09/27/23 Name, MD Sebast[facility]án [facility] [address] PCP - General Internal Medicine 09/28/23 08/20/24 [place] [facility] [place] [address] PCP - General Family Medicine 08/21/24 02/26/25 [place] [address] PCP - General Internal Medicine 02/27/25 documented as of this encounter
--- OUTSIDE RECORDS SUMMARY | 2025-06-26 18:20 | XMS_ITS | Encounter Summary ---
Author Organization [employer] Address [address] [facility] 7t [place] [address] Care Team Providers Care Road Roller Engineer Name Role Phone Name, Sebastián MENDOZA Primary Care Provider [phone] [facility] Primary Care Provider [phone] Faviola Boyce MD Primary Care Provide r Reason for Visit * Reason Onset Date Comments Nurse Triage 10/19/2023 Encounter Details Date Type Department Care Team (Late st Contact Info) Description 10/19/2023 Telephone [facility] [address] [place], [place] [phone] Name, MD Sebastián [address] [place], [place] [phone] Nurse Triage Social History Tobacco Use Types Packs/Day Years [...] encounter Miscellaneous Notes * Telephone Encounter - Fadumo Blancas RN - 10/19/2023 1:36 PM EDT Call attempted [phone] .Call just rings unable to LVM as no VM message. Pt to follow up PRN. * Telephone Encounter - Guerda Taylor - 10/19/2023 1:10 PM EDT Symptoms: Dizziness, Vomiting Outcome: Schedule an urgent appointment (within 4 hours) or talk to a nurse or provider soon Reason: Started within the past 3 days The caller accepted this outcome Please contact pt at [phone] (French) documented in this encounter Plan of Treatment Upcoming Encounters Date Type Department Care Team (Late st Contact Info) Description 08/27/2025 11:30 AM EST Office Visit [facility] [address] [place], [place] [phone] Faviola Boyce MD [address] [place] [address] 10/09/2025 1:00 PM EDT Office Visit [facility] [address] [place] [address] Shabana Carbone, OD [address] [place] [address] documented as of this encounter Visit Diagnoses Not on filedocumented in this encounter Additional Health Concerns Assessment Noted Time PHQ-9 Depression Total Score: 25 022 1:54 PM EST documented as of this encounter Care Teams Road Roller Engineer Relationship Specialty Start Date End Date Name, MD Sebastián [address] [place] [address] PCP - General Internal Medicine 09/28/23 08/20/24 [place] [facility] [address] [place] [address] PCP - General Family Medicine 08/21/24 02/26/25 Faviola Boyce MD [address] [place] [address] PCP - General Internal Medicine 02/27/25 documented as of this encounter
--- OUTSIDE RECORDS SUMMARY | 2025-06-26 18:20 | XMS_ITS | Encounter Summary ---
Author Organization [employer] Address 75 [facility] 7t [place] [address] Care Team Providers Care Drilling Assistant Name Role Phone Stevan Boyce MD Primary Care Provide r Reason for Visit * Reason Onset Date Comments telephone call 06/26/2025 Encounter Details Date Type Department Care Team ([facility] st Contact Info) Description 06/26/2025 Refill [facility] MEDICINE [address] [place] [address] Stevan Boyce MD [address] [place] [address] Depressive disorder (Primary Dx) Social History Tobacco Use Types [...] housing situation today? I have marcelo cora 08/21/[address] you li [...] as of this encounter Miscellaneous Notes * Addendum Note - Stevan Kelly MD - 06/26/2025 3:14 PM ESTAddended by: STEVAN RAVI on: 06/26/2025 03:14 PM Modules accepted: Orders * Addendum Note - Shikha Arroyo RN - 06/26/2025 1:38 PM ESTAddended by: SHIKHA ARROYO on: 06/26/2025 01:38 PM Modules accepted: Orders * Telephone Encounter - Kathy Matthews - 06/26/2025 12:42 PM EST Pt walked in requesting a refill for Venlafaxine I did inform her she is currently with patients and she has up to 72 hours to send the medication. * Telephone Encounter - Kathy Matthews - 06/26/2025 12:00 PM EST Pt walked in stating the Pharmacy can't refill her medication Venlafaxine 225mg because insurance but they said if the pcp sends a prescription like before of 150 mg then they can refill it. documented in this encounter Plan of Treatment Upcoming Encounters Date Type Department Care Team (Late st Contact Info) Description 08/27/2025 11:30 AM EST Office Visit [facility] MEDICINE [address] [place] [address] Stevan Boyce MD [address] [place] [address] 10/09/2025 1:00 PM EDT Office Visit [facility] OPTOMETRY [address] [place] [address] Shabana Carbone, OD [address] [place] [address] documented as of this encounter Goals Goal [...] blood pressure task No Keri Barrientos [place] Patient has chronic kidney disease Care Plan Patient has chronic kidney disease No Keri Barrientos [place] Patient has chronic kidney disease Care Plan Patient has chronic kidney disease No Keri Barrientos [place] Weekly blood pressure [...] Care Plan Weekly blood pressure task No Shabana Carbone OD Weekly blood pressure task Care Plan Weekly blood pressure task No Shabnaa Carbone OD Patient has chronic kidney disease Care Plan Patient has chronic kidney disease No Shabana Carbone OD Patient has chronic kidney disease Care [...] has chronic kidney disease No Kathy Matthews Weekly blood pressure task [...] Care Plan Weekly blood pressure task No Freedmanheidi Hall [place], [place] Weekly blood pressure task Care Plan Weekly blood pressure task No [facility]man [facility] [place], [place] Patient has chronic kidney disease Care Plan Patient has chronic kidney disease No [facility], [place], [place] Patient has chronic kidney disease Care Plan Patient has chronic kidney disease No [facility], [place], [place] documented as of this encounter Visit Diagnoses Diagnosis Depressive disorder- Primary Depressive disorder, not elsewhere classified documented in this encounter Additional Health Concerns [...] documented as of this encounter Care Teams Drilling Assistant Relationship Specialty Start Date End Date Stevan Boyce MD [address] [place] [address] PCP - General Internal Medicine 02/27/25 documented as of this encounter
--- OUTSIDE RECORDS SUMMARY | 2025-06-26 18:20 | XMS_ITS | Encounter Summary ---
Author Organization [employer] Address 75 [facility] 7t [place] [address] Care Team Providers Care Earrings Fabricator Name Role Phone Name, Sebastián MENDOZA Primary Care Provider [phone] [facility] RADHA Primary Care Provider [phone] Faviola Boyce MD Primary Care Provide r Reason for Visit * Reason Comments Med Refill Encounter Details Date Type Department Care Team (Late st Contact Info) Description 07/02/2024 Refill [facility] [address] [place], [place] [phone] Nya Nino MD [address] [place], [place] [phone] Secondary hypertension Social History Tobacco Use Types [...] Patient Health Questionnaire-2 Score 6 06/15/2022 Comments No Sex and Gender Information Value [...] 11:30 AM EST Office Visit [facility] MEDICINE [address] [place] [address] Faviola Boyce MD [address] [place] [address] 10/09/2025 1:00 PM EDT Office Visit [facility] OPTOMETRY [address] [place] [address] Shabana Carbone, OD [address] [place] [address] documented as of this encounter Visit Diagnoses Diagnosis Secondary hypertension Other secondary hypertension, unspecified documented in this encounter Additional Health Concerns Assessment Noted Time PHQ-9 Depression Total Score: 25 022 1:54 PM EST documented as of this encounter Care Teams Earrings Fabricator Relationship Specialty Start Date End Date Name, MD Sebastián [address] [place] [address] PCP - General Internal Medicine 09/28/23 08/20/24 Red DevilMary Ann [facility] [address] [place] [address] PCP - General Family Medicine 08/21/24 02/26/25 Faviola Boyce MD [address] [place] [address] PCP - General Internal Medicine 02/27/25 documented as of this encounter
--- OUTSIDE RECORDS SUMMARY | 2025-06-26 18:20 | XMS_ITS | Encounter Summary ---
Author Organization [employer] Address 75 [facility] 7t [place] [address] Care Team Providers Care Audio Visual Specialist Name Role Phone Faviola Boyce MD Primary Care Provide r Encounter Details Date Type Department Care Team (Latest Contact Info) Description 06/26/2025 Travel Social History Tobacco Use Types Packs/Day Years [...] Description 08/27/2025 11:30 AM EST Office Visit [facility] MEDICINE 230 [place] [address] Faviola Boyce MD 230 [place] [address] 10/09/2025 1:00 PM EDT Office Visit [facility] OPTOMETRY [address] [place] [address] Shabana Carbone, OD [address] [place] [address] documented as of this encounter Goals Goal [...] Plan Patient has chronic kidney disease No Daine Pak Weekly blood pressure task Care Plan [...] blood pressure task No Shabana Carbone OD Patient has chronic [...] Care Plan Weekly blood pressure task No Byron Kathy Patient has chronic kidney disease Care Plan Patient has chronic kidney disease No Byron, Kathy Patient has chronic kidney disease Care Plan [...] Plan Weekly blood pressure task No Taran Anderson [place] Weekly blood pressure task Care Plan Weekly blood pressure task No Tano Hall Taran [place] Patient has chronic kidney disease Care Plan Patient has chronic kidney disease No Cynthia Andersonsmo [place] Patient has chronic kidney disease Care Plan Patient has chronic kidney disease No Tano Hall Taran [place] documented as of this encounter Visit Diagnoses Not on filedocumented in this encounter Additional Health Concerns Active [...] documented as of this encounter Care Teams Audio Visual Specialist Relationship Specialty Start Date End Date Faviola Boyce MD [address] [place] [address] PCP - General Internal Medicine 02/27/25 documented as of this encounter
--- OUTSIDE RECORDS SUMMARY | 2025-06-26 18:20 | XMS_ITS | Encounter Summary ---
Author Organization [employer] Address 75 [facility] 7t [place] [address] Care Team Providers Care Tie Maker Name Role Phone [facility] Primary Care Provider [phone] Name, Sebastián MENDOZA Primary Care Provider [phone] [facility] Primary Care Provider [phone] Faviola Boyce MD Primary Care Provide r Reason for Visit * Reason Comments Med Refill Encounter Details Date Type Department Care Team (Late st Contact Info) Description 09/07/2023 Refill [facility] MEDICINE [address] [place] [address] Name, MD Sebastián [address] [place], [place] [phone] Type 2 diabetes mellitus without complications (CMS/HCC) Social History Tobacco Use Types Packs/Day Years [...] Description 08/27/2025 11:30 AM EST Office Visit [facility] MEDICINE [address] [place] [address] Faviola Boyce MD [address] [place] [address] 10/09/2025 1:00 PM EDT Office Visit [facility] OPTOMETRY [address] [place], [place] [phone] LindseyjasonShabana, OD [address] [place] [address] documented as of this encounter Visit Diagnoses Diagnosis Type 2 diabetes mellitus without complications (HCC) documented in this encounter Additional Health Concerns Assessment Noted Time PHQ-9 Depression Total Score: 25 022 1:54 PM EST documented as of this encounter Care Teams Tie Maker Relationship Specialty Start Date End Date Mary Ann Alberts FNP [address] [place] [address] PCP - General Family Medicine 09/07/23 09/27/23 Sebastián Leal MD [address] [place] [address] PCP - General Internal Medicine 09/28/23 08/20/24 SussexMary Ann FNP [address] [place] [address] PCP - General Family Medicine 08/21/24 02/26/25 Faviola Boyce MD [address] [place] [address] PCP - General Internal Medicine 02/27/25 documented as of this encounter
--- OUTSIDE RECORDS SUMMARY | 2025-06-26 18:20 | XMS_ITS | Encounter Summary ---
Author Organization [employer] Address 75 [facility] 7t [place] [address] Care Team Providers Care Tinsmith Apprentice Name Role Phone Faviola Boyce MD Primary Care Provide r Reason for Visit * Reason Comments Med Refill Encounter Details Date Type Department Care Team ([facility] Contact Info) Description 06/26/2025 Refill [facility] MEDICINE [address] [place], [place] [phone] Faviola Boyce MD [address] [place], [place] [phone] Type 2 diabetes mellitus with other specified complication, unspecified whether fci insulin use (HCC) Social History Tobacco Use Types Packs/Day Years [...] Description 08/27/2025 11:30 AM EST Office Visit [facility] MEDICINE [address] [place] [address] Faviola Boyce MD [address] [place] [address] 10/09/2025 1:00 PM EDT Office Visit [facility] OPTOMETRY [address] [place] [address] Shabana Carbone, OD [address] [place] [address] documented as of this encounter Goals Goal [...] has chronic kidney disease No Byron Kathy Patient has chronic kidney disease Care Plan Patient has chronic kidney disease No Byron Kathy Weekly blood pressure task Care Plan Weekly blood pressure task No Elvira Meyer GANG SUPERVISOR [employer] Weekly blood pressure task Care Plan Weekly blood pressure task No Elvira Meyer GANG SUPERVISOR [employer] Patient has chronic kidney disease Care Plan Patient has chronic kidney disease No Flower Meyerfer GANG SUPERVISOR [employer]IPE [employer]ES Patient has chronic kidney disease Care Plan Patient has chronic kidney disease No Flower Meyerfer GANG SUPERVISOR [employer] Weekly blood pressure task Care Plan Weekly blood pressure task No Tano Hall [place], [place] Weekly blood pressure task Care Plan Weekly blood pressure task No Tano Hall [place], [place] Patient has chronic kidney disease Care Plan Patient has chronic kidney disease No Freedman [facility], [place], [place] Patient has chronic kidney disease Care Plan Patient has chronic kidney disease No Freedman [facility], [facility] [place] documented as of this encounter Visit Diagnoses Diagnosis Type 2 diabetes mellitus with other specified complication, unspecified whether fci insulin use (HCC) documented in this encounter Additional Health [...] documented as of this encounter Care Teams Tinsmith Apprentice Relationship Specialty Start Date End Date Faviola Boyce MD [address] [place] [address] PCP - General Internal Medicine 02/27/25 documented as of this encounter
--- OUTSIDE RECORDS SUMMARY | 2025-06-26 18:20 | XMS_ITS | Encounter Summary ---
Author Organization [employer] Address 75 [facility] 7t [place] [address] Care Team Providers Care City Comptroller Name Role Phone Faviola Boyce MD Primary Care Provide r Reason for Visit * Reason Onset Date Comments Cologuakamilah 06/26/2025 [facility] Outreach Encounter Details Date Type Department Care Team ([facility] Contact Info) Description 06/26/2025 Telephone [facility] MEDICINE [address] [place] [address] Angela Martinez, RN Cindy ([facility] Outreach) Social History Tobacco Use Types Packs/Day Years [...] encounter Miscellaneous Notes * Telephone Encounter - Angela Martinez RN - 06/26/2025 11:39 AM EST RN outreach completed for Cologuard?? follow-up. Spoke with patient regarding the importance of completing colorectal cancer screening and reviewed how to properly collect and return the Cologuard?? kit. Discussed common barriers and provided education on options for UPS drop-off or scheduling a home pick-up. Patient verbalized understanding and plans to complete the test. Encouraged patient to call the clinic if additional questions or barriers arise. If patient needs materials resent, confirmed preferred method (mail/text/email). Confirmed correct mailing address for test kit. Documented any reported barriers in the tracking spreadsheet. documented in this encounter Plan of Treatment Upcoming Encounters Date Type Department Care Team (Late st Contact Info) Description 08/27/2025 11:30 AM EST Office Visit [facility] MEDICINE [address] [place] [address] Faviola Boyce MD [address] [place] [address] 10/09/2025 1:00 PM EDT Office Visit [facility] OPTOMETRY [address] [place] [address] Shabana Carbone, OD [address] [place] [address] documented as of this encounter Goals Goal [...] Plan Patient has chronic kidney disease No Vasiliy Paka Weekly blood pressure task Care Plan Weekly [...] Care Plan Weekly blood pressure task No Mariasbel Koenig Weekly blood pressure task Care Plan [...] Care Plan Weekly blood pressure task No Tarjason Shabana, OD Weekly blood pressure task Care Plan Weekly blood pressure task No Tarka Shabana, OD Patient has chronic kidney disease Care Plan Patient has chronic kidney disease No TarArash gomezShabana, OD Patient has chronic kidney disease Care Plan Patient has chronic kidney disease No TarArash gomezShabana, OD Weekly blood pressure task Care Plan [...] Weekly blood pressure task No Tano Hall [place], [place] Weekly blood pressure task Care Plan Weekly blood pressure task No Tano Hall [place], [place] Patient has chronic kidney disease Care Plan Patient has chronic kidney disease No Tano Hall [place], [place] Patient has chronic kidney disease Care Plan Patient has chronic kidney disease Taran Dasilva [place] documented as of this encounter Visit [...] documented as of this encounter Care Teams City Comptroller Relationship Specialty Start Date End Date Faviola Boyce MD [address] [place] [address] PCP - General Internal Medicine 02/27/25 documented as of this encounter
--- OUTSIDE RECORDS SUMMARY | 2025-06-26 18:20 | XMS_ITS | Encounter Summary ---
Author Organization [employer] Address 75 [facility] 7t [place] [address] Care Team Providers Care Doors Prefitter Name Role Phone Name, Sebastián MENDOZA Primary Care Provider [phone] [facility] Primary Care Provider [phone] Name, Sebastián MENDOZA Primary Care Provider [phone] [facility] Primary Care Provider [phone] Faviola Boyce MD Primary Care Provide r Reason for Visit * Reason Comments Med Refill Encounter Details Date Type Department Care Team (Late st Contact Info) Description 04/22/2023 Refill [facility] MEDICINE [address] [place], [place] [phone] Tonie Harris, ANP [address] [place], [place] [phone] Secondary hypertension Social History Tobacco Use Types [...] Office Visit [facility] MEDICINE [address] [place] [address] Faviola Boyce MD [address] [place] [address] 10/09/2025 1:00 PM EDT Office Visit [facility] OPTOMETRY [address] [place] [address] Tarjason Shabana, OD [address] [place] [address] documented as of this encounter Visit Diagnoses Diagnosis Secondary hypertension Other secondary hypertension, unspecified documented in this encounter Additional Health Concerns Assessment Noted Time PHQ-9 Depression Total Score: 25 022 1:54 PM EST documented as of this encounter Care Teams Doors Prefitter Relationship Specialty Start Date End Date Name, MD Sebastián [address] [place] [address] PCP - General Family Medicine 05/02/21 09/06/23 WeltonMary Ann FNP [address] [place] [address] PCP - General Family Medicine 09/07/23 09/27/23 Sebastián Leal MD [address] [place] [address] PCP - General Internal Medicine 09/28/23 08/20/24 [facility] [address] [place] [address] PCP - General Family Medicine 08/21/24 02/26/25 Faviola Boyce MD [address] [place] [address] PCP - General Internal Medicine 02/27/25 documented as of this encounter
--- OUTSIDE RECORDS SUMMARY | 2025-06-26 18:20 | XMS_ITS | Encounter Summary ---
Author Organization [employer] Address [address] [place] [address] 7t [place] [address] Care Team Providers Care Bricklayer Sewer Name Role Phone Name, Sebastián MENDOZA Primary Care Provider [phone] [facility] RADHA Primary Care Provider [phone] Name, Sebastián MENDOZA Primary Care Provider [phone] [facility] MEMBERSHIP SECRETARY Primary Care Provider [phone] Faviola Boyce MD Primary Care Provide r Reason for Visit * Reason Comments Med Refill Encounter Details Date Type Department Care Team (Late Contact Info) Description 12/29/2022 Refill [facility] MEDICINE [address] [place] [phone] Maryanne Martinez, RADHA Rib pain on left side; Rib pain on right side; Acute bilateral thoracic back pain Social History Tobacco Use Types Packs/Day Years [...] Upcoming Encounters Date Type Department Care Team ([facility] Contact Info) Description 08/27/2025 11:30 AM EST Office Visit [facility] MEDICINE [address] [place] [address] [phone] Faviola Boyce MD [address] [place] [address] 10/09/2025 1:00 PM EDT Office Visit [facility] OPTOMETRY [address] [place] [address] TarShabana gomez, OD [address] [place] [address] documented as of this encounter Visit Diagnoses Diagnosis Rib pain on left side Rib pain on right side Acute bilateral thoracic back pain documented in this encounter Additional Health Concerns Assessment Noted Time PHQ-9 Depression Total Score: 022 1:54 PM EST documented as of this encounter Care Teams Bricklayer Sewer Relationship Specialty Start Date End Date Mel, MD Sebastián [address] [place] [address] PCP - General Family Medicine 05/02/21 09/06/23 [place] [facility] [address] [place] [address] PCP - General Family Medicine 09/07/23 09/27/23 Name, MD Sebastián [address] [place] [address] PCP - General Internal Medicine 09/28/23 08/20/24 [place] Ann [facility] [address] [place] [address] PCP - General Family Medicine 08/21/24 02/26/25 [place] [address] PCP - General Internal Medicine 02/27/25 documented as of this encounter
--- OUTSIDE RECORDS SUMMARY | 2025-06-26 18:20 | XMS_ITS | Encounter Summary ---
Author Organization [employer] Address [address] [facility] 7t [place] [address] Care Team Providers Care Manager Food Safety Name Role Phone Name, Sebastián MENDOZA Primary Care Provider [phone] [facility] Primary Care Provider [phone] Name, Sebastián MENDOZA Primary Care Provider [phone] [facility] Primary Care Provider [phone] Faviola Boyce MD Primary Care Provide r Reason for Visit * Reason Onset Date Comments Med Refill 07/22/2023 Schedule CASH ACCOUNTING CLERK Initial appt 07/22/2023 Encounter Details Date Type Department Care Team (Late st Contact Info) Description 07/22/2023 Telephone [facility] MEDICINE [address] [place], [place] [phone] Name, MD Sebastián [address] [place], [place] [phone] Med Refill; Schedule CASH ACCOUNTING CLERK Initial appt Social History Tobacco Use Types Packs/Day Years [...] encounter Miscellaneous Notes * Telephone Encounter - Carmen Paulino RN - 07/22/2023 12:35 PM EST Per PCP 07/19/23, Clonazepam refill is denied until pt has CASH ACCOUNTING CLERK Initial appt. Unable to reach patientby phone, no response to letter mailed 04/28/23. * Telephone Encounter - Carmen Paulino RN - 07/22/2023 12:33 PM EST TC to pt, no answer. Unable to leave voicemail, number just rings. * Telephone Encounter - Amanda Ng - 07/22/2023 11:14 AM EST TC from pt requesting medication refill. Medications needing refill : clonazePAM (KlonoPIN) 0.5 MG tablet To be sent to: [facility] - [place], [place] - [address] documented in this encounter Plan of Treatment Upcoming Encounters Date Type Department Care Team (Late st Contact Info) Description 08/27/2025 11:30 AM EST Office Visit [facility] [address] [place] [address] Faviola Boyce MD [address] [facility] [place] [address] 10/09/2025 1:00 PM EDT Office Visit [facility] OPTOMETRY 267 [facility] [place] [address] Tarjason, Shabana, OD [address] [place] [address] documented as of this encounter Visit Diagnoses Not on filedocumented in this encounter Additional Health Concerns Assessment Noted Time PHQ-9 Depression Total Score: 25 022 1:54 PM EST documented as of this encounter Care Teams Manager Food Safety Relationship Specialty Start Date End Date Sebastián Leal MD [facility] [place] [address] PCP - General Family Medicine 05/02/21 09/06/23 Mary Ann Alberts FNP [facility] [place] [address] PCP - General Family Medicine 09/07/23 09/27/23 NameSebastián MD [facility] [place] [address] PCP - General Internal Medicine 09/28/23 08/20/24 Mary Ann Alberts FNP [facility] [place] [address] PCP - General Family Medicine 08/21/24 02/26/25 Faviola Boyce MD [facility] [place] [address] PCP - General Internal Medicine 02/27/25 documented as of this encounter
--- OUTSIDE RECORDS SUMMARY | 2025-06-26 18:20 | XMS_ITS | Clinical Summary ---
Author Organization [employer] Address [address] [place] [address] [address] [place] [address] Care Team Providers Care [employer] Supervisor Name Role Phone Faviola Boyce MD Primary Care Provide r Allergies Active Allergy Reactions Criticality Noted Date Comments Ibuprofen 06/10/2010 Other reaction(s): unspecified: GI upset Propranolol Hcl 06/10/2022 Metoprolol 06/10/2010 Other reaction(s): nausea: Pt tolerated toprol xl Simvastatin-High Dose 07/20/2022 Medications * This document contains information received from the source organization and may not represent a complete record from that organization. Alcohol Swabs (Alcohol Prep) 70 % padsIndications: Secondary hypertension USE THREE TIMES DAILY 100 each 3 023 Active Blood Glucose Monitoring Suppl (FreeStyle [place] Lite) w/Device kitIndications:T ype 2 diabetes mellitus without complication, without long-term current use of insulin ([facility]) TEST BLOOD SUGAR 3 TIMES A DAY 1 kit 024 Active glucose blood (FREESTYLE LITE) test stripIndications :Type 2 diabetes mellitus with hyperglycemia ([facility]) TEST BLOOD SUGAR ONCE A DAY 100 strip 5 024 Active TRUEplus Lancets 33G miscIndications: Type 2 diabetes mellitus with hyperglycemia (HCC) TEST BLOOD SUGAR ONCE A DAY 100 each 11 024 Active hydrOXYzine pamoate (Vistaril) 25 MG capsuleIndicatio ns:Anxiety Take 2 capsules (50 mg) by mouth every 8 (eight) hours if needed for itching. 90 capsule 11 06/01/20 25 11:51 AM EST 025 Active Acetaminophen Extra Strength 500 MG tabletIndication s:Secondary hypertension TAKE 1 TABLET BY MOUTH EVERY 8 HOURS NEEDED FOR PAIN 60 tablet 1 025 Active lidocaine (Lidoderm) 5 % patchIndications :Mid back pain on left side Apply 1 patch topically Once per day. Remove & discard patch within 12 hours or as directed by MD. 30 patch 1 025 Active rosuvastatin (Crestor) 40 MG tablet TAKE 1 TABLET BY MOUTH EVERY DAY 30 tablet 11 06/26/20 25 11:59 AM EST 025 Active fluticasone (Flonase) 50 MCG/ACT nasal spray INSTILL 1 SPRAY IN EACH NOSTRIL ONCE DAILY 16 g 2 025 Active pantoprazole (ProtoNix) 40 MG EC tabletIndication s:Secondary hypertension TAKE 1 TABLET BY MOUTH EVERY DAY 90 tablet 1 06/12/20 25 12:06 PM EST 025 Active Diclofenac Sodium 1 % gelIndications:R ib pain on left side,Rib pain on right side,Acute bilateral thoracic back pain APPLY 2 GRAMS TOPICALLY TWICE DAILY NEEDED 100 g 3 06/12/20 25 12:06 PM EST 025 Active metFORMIN (Glucophage) 500 MG tablet TAKE 1 TABLET BY MOUTH EVERY DAY 30 tablet 3 06/12/20 25 12:06 PM EST 025 Active meclizine (Antivert) 25 MG tabletIndication s:Dizziness TAKE 1 TABLET BY MOUTH THREE TIMES DAILY IN THE MORNING, AT NOON, AND AT BEDTIME NEEDED FOR DIZZINESS 30 tablet 2 06/12/20 25 12:06 PM EST 025 Active lisinopril 20 MG tabletIndication s:Type 2 diabetes mellitus with hyperglycemia (HCC) TAKE 1 TABLET BY MOUTH EVERY DAY 90 tablet 1 025 Active hydroCHLOROthiaz duane 12.5 MG tabletIndication s:Secondary hypertension TAKE 1 TABLET BY MOUTH EVERY MORNING 90 tablet 1 025 Active cholecalciferol VITAMIN D (Vitamin D-3) 50 MCG (1999) tablet TAKE 1 TABLET BY MOUTH EVERY MORNING 90 tablet 1 06/12/20 25 12:06 PM EST 025 Active zolpidem (Ambien) 10 MG tabletIndication s:Insomnia, unspecified TAKE 1 TABLET BY MOUTH AT BEDTIME NEEDED FOR SLEEP 7 tablet 06/12/20 25 12:06 PM EST Active venlafaxine XR (Effexor XR) 225 MG 24 hr tabletIndication s:Anxiety,Depres sive disorder Take 1 tablet (225 mg) by mouth with breakfast. Do not crush, chew, or split. 30 tablet 3 Active busPIRone (Buspar) 7.5 MG tabletIndication s:Anxiety Take 1 tablet (7.5 mg) by mouth 2 times daily. 60 tablet 2 06/15/20 25 12:17 PM EST 025 2025 Active amLODIPine (Norvasc) 10 MG tabletIndication s:Essential hypertension Take 1 tablet (10 mg) by mouth Once per day. 90 tablet 2 06/15/20 25 12:17 PM EST 025 2025 Active ascorbic acid (Vitamin C) 500 MG tabletIndication s:Type 2 diabetes mellitus without complication, without long-term current use of insulin (HCC) Take 1 tablet (500 mg) by mouth Once per day. 30 tablet 11 06/15/20 25 12:17 PM EST 025 2025 Active Tirzepatide (Mounjaro) 2.5 MG/0.5ML solution auto-injectorInd ications:Type 2 diabetes mellitus without complication, without long-term current use of insulin (HCC) Inject 2.5 mg under the skin 1 (one) time per week. 2 mL 2 06/15/20 25 12:17 PM EST Active zolpidem (Ambien) 10 MG tabletIndication s:Primary insomnia Take 1 tablet (10 mg) by mouth if needed at bedtime for sleep. 28 tablet 025 2025 Active venlafaxine XR (Effexor XR) 150 MG 24 hr capsuleIndicatio ns:Type 2 diabetes mellitus with other specified complication, unspecified whether penitentiary insulin use (HCC) TAKE 1 CAPSULE BY MOUTH EVERY DAY DO NOT BREAK, CRUSH, DISSOLVE OR CHEW 30 capsule 3 06/26/20 25 3:42 PM EST Active venlafaxine XR (Effexor XR) 75 MG 24 hr capsule TAKE 1 CAPSULE BY MOUTH EVERY DAY. DO NOT BREAK, CRUSH, DISSOLVE OR CHEW 30 capsule 3 06/26/20 25 3:42 PM EST Active venlafaxine XR (Effexor XR) 75 MG 24 hr capsuleIndicatio ns:Depressive disorder Take 1 capsule (75 mg) by mouth Once per day. Do not crush or chew. 30 capsule 3 025 2025 Active venlafaxine XR (Effexor XR) 150 MG 24 hr capsuleIndicatio ns:Depressive disorder Take 1 capsule (150 mg) by mouth Once per day. Do not crush or chew. 30 capsule 3 025 2025 Active amLODIPine (Norvasc) 10 MG tablet Take 1 tablet (10 mg) by mouth Once per day. 30 tablet 11 05/14/20 2:57 PM EST 025 2024 Discontinued(R eorder (will not trigger notification to Pharmacy)) Trulicity 0.75 MG/0.5ML solution auto-injectorInd ications:Type 2 diabetes mellitus with other specified complication, without long-term current use of insulin (HCC) INJECT ONE PEN (=0.75MG) SUBCUTANEOUSLY ONCE A WEEK DIRECTED 2 mL 3 05/21/20 2:38 PM EST 025 2024 Discontinued venlafaxine XR (Effexor XR) 150 MG 24 hr capsuleIndicatio ns:Type 2 diabetes mellitus with other specified complication, unspecified whether continuous churn buttermaker insulin use (HCC) TAKE 1 CAPSULE BY MOUTH EVERY DAY. DO NOT BREAK, CRUSH, DISSOLVE OR CHEW. 30 capsule 3 05/21/20 25 2:38 PM EST 025 2024 Discontinued zolpidem (Ambien) 10 MG tabletIndication s:Insomnia, unspecified TAKE 1 TABLET BY MOUTH EVERY DAY AT BEDTIME NEEDED FOR SLEEP 7 tablet 05/29/20 9:01 AM EST 025 2024 Discontinued Trulicity 0.75 MG/0.5ML solution auto-injectorInd ications:Type 2 diabetes mellitus with other specified complication, without long-term current use of insulin (HCC) INJECT ONE PEN (=0.75MG) SUBCUTANEOUSLY ONCE A WEEK DIRECTED 2 mL 3 025 2024 Discontinued Active Problems Problem Noted Date Diagnosed Date Colon cancer screening 06/12/2025 Encounter for screening mamm ogram for malignant neoplasm of breast 06/12/2025 Primary insomnia 06/12/2025 Mid back pain on left side 12/09/2024 Assessment & Plan (12/09/2024 11:10 AM EDT): Apply heat on affected area I advised gentle stretching I will prescribe acetaminophen as needed, lidocaine patch and Flexeril 5 mg every 8 hours, patient was counseled about side effects of medication especially somnolence with Flexeril and not to mix it with other medications Anxiety 03/24/2023 Cervical spondylosis 06/10/2022 Chronic neck pain 06/10/2022 Depressive disorder 06/10/2022 Essential hypertension 06/10/2022 Hypercholesterolemia 06/10/2022 Type 2 diabetes mellitus 06/10/2022 Assessment & Plan (03/29/2024 4:52 PM EDT): Controlled, A1c is at goal. Due to potential side effects, she will hold metformin and fu with PCP. Trulicity can be adjusted if abd sxs are thought to be related to metformin. Continue Trulicity 0.75mg/w Resolved Problems Problem Noted Date Diagnosed Date Resolved Date Lower urinary tract symptoms (LUTS) 11/21/2024 12/09/2024 Assessment & Plan (11/21/2024 10:49 PM EDT): 03/2024 GFR > 60, Cr 0.69 Pt w clinically LUTS, likely UTI , not able to do urine dipstick given recently urinate On exam pain in flanks seems more muscular that actual CVA w pain w muscle palpation ,VS normal -UA w reflex cx-explained pt to go to lab today and to make sure to leave sample prior starting ATB -start keflex BID x 3 days as uncomplicated UTI -if neg UA w reflex cx will call to stop ATB or to change if needed -pyriudim x 2 days -alam signs and symptoms discussed w pt RUQ abdominal pain 03/29/2024 Assessment & Plan (03/29/2024 4:50 PM EDT): It could be related to Metformin or Trulicity, however it could also be related to gastritis? She will hold metformin until she sees PCP, advised to call back prn if BS starts going above 200 Hold Protonix x1w until she gets labs done, order H.Pilory, will treat if needed. Use sucralfate x 2w and fu with PCP, Can restart Protonix after H.Pilory test is done Order Abd US to ro biliary stones. Advised to cut down on fatty meals, eggs, whole milk. Encounters Date Type Department Care Team Description 06/26/2025 2:20 PM EST Office Visit [facility] [address] [place] [address] [phone] Sebastián Leal MD AF (amaurosis fugax) (Primary Dx) 06/26/2025 Travel 06/26/2025 Refill [facility] [address] [place] [address] [phone] Faviola Boyce MD Type 2 diabetes mellitus with other specified complication, unspecified whether penitentiary insulin use (HCC) 06/26/2025 Refill [facility] [address] [place] [address] [phone] Faviola Boyce MD Depressive disorder (Primary Dx) 06/26/2025 Telephone [facility] [address] [place] [address] [phone] Angela Martinez, JONAH White ([facility] Outreach) 06/13/2025 Patient Outreach [facility] [address] [place] [address] [phone] Brent Blanton Recovery Supports 06/12/2025 1:15 PM EST Office Visit [facility] [address] [place] [address] [phone] Faviola Boyce MD Type 2 diabetes mellitus without complication, without long-term current use of insulin (HCC); Colon cancer screening; Screening for colon cancer; Encounter for screening mammogram for malignant neoplasm of breast; Anxiety; Depressive disorder; Essential hypertension; Dietary counseling; Exercise counseling; Overweight; Primary insomnia 06/12/2025 Travel 06/11/2025 Telephone [facility] [address] [place] [address] Faviola Boyce MD Chart Prep 06/11/2025 Refill [facility] [address] [place] [address] [facility] Type 2 diabetes mellitus with other specified complication, without long-term current use of insulin ([facility]) 06/08/2025 Patient Outreach [facility] [address] [place] [phone] Marisabel Koenig Recovery Supports 06/08/2025 Refill [facility] [address] [place] [address] Faviola Boyce MD Insomnia, unspecified 06/01/2025 Patient Outreach [facility] [address] [place] [address] [phone] Faviola Boyce MD Pre-visit Planning ((Unable to reach for PVP screening, LVM) to be completed in office ) 05/21/2025 Refill [facility] [address] [place] [address] [phone] Faviola Boyce MD Insomnia, unspecified 05/17/2025 Refill [facility] [address] [place] [phone] [facility] 05/15/2025 Telephone [facility] [address] [place] [address] [phone] Faviola Boyce MD Prior Authorization (PA: hydrOXYzine pamoate (Vistaril) 25 MG capsule) 04/30/2025 Refill [facility] [address] [place] [phone] Polina Ellis, TERESITA Insomnia, unspecified 04/18/2025 Telephone [facility] [address] [place] [address] [phone] Faviola Boyce MD No Show 04/17/2025 Telephone [facility] [address] [place] [address] [phone] Faviola Boyce MD Chart Prep 04/11/2025 Patient Outreach [facility] [address] [place] [address] Faviola Boyce MD Pre-visit Planning (SDOH was already completed) 04/09/2025 Refill [facility] [address] [place] [address] [place], Mary Ann, TROMPER Type 2 diabetes mellitus with hyperglycemia (HCC); Secondary hypertension from Last 3 Months Immunizations Immunization Administration Dates Next Due Hep B, adult 08/03/2007,03/31/2007,03/03/2007 Influenza injectable quadriv alent preservative free 09/16/2017 TD (adult), 2 Lf tetanus tox oid, preservative free, adsorbed 06/22/2000 Tdap 03/04/2021,11/02/2017,04/10/2010 Family History Medical History Relation Name Comments Blindness Brother Diabetes Brother Blindness Mother Diabetes Mother Blindness Sister Diabetes Sister Relation Name Status Comments Brother Mother Sister Social History Tobacco Use Types Packs/Day Years [...] Orientation Straight 04/27/2022 10 :14 AM EDT Last Filed Vital Signs Vital Sign Reading Time Taken Comments Blood Pressure 128/78 06/26/2025 2:17 PM EST Pulse 90 06/26/2025 2:17 PM EST Temperature 36.6 C (97.9 F) 06/26/2025 2:17 PM EST Respiratory Rate 16 06/26/2025 2:17 PM EST Oxygen Saturation 97% 06/26/2025 2:17 PM EST Inhaled Oxygen Concentration - - Weight 72.6 kg (160 lb) 06/26/2025 2:17 PM EST Height 157.5 cm (5' 2 ) 06/12/2025 1:00 PM EST Body Mass Index 29.26 06/12/2025 1:00 PM EST Plan of Treatment Upcoming Encounters Date Type Department Care Team (Late st Contact Info) Description 08/27/2025 11:30 AM EST Office Visit [facility] [address] [place] [address] Faviola Boyce MD [address] [place] [address] 10/09/2025 1:00 PM EDT Office Visit [facility] [address] [place] [address] Shabana Carbone, OD [address] [place] [address] Health Maintenance Due Date Last Done Comments CT Colonography 1954 Colonoscopy 1954 Colorectal Cancer Screening 1954 FIT DNA/Cologuard 1954 FIT 1954 FOBT 1954 Sigmoidoscopy 1954 Diabetes: Foot Exam 02/21/1964 Hepatitis C Screening 02/21/1972 Pneumococcal Vaccine: 50+ Years (1 of 2 - PCV) 1973 Mammogram 1994 Zoster Vaccines (1 of 2) 02/21/2004 COVID-19 Vaccine (1 - season) 2025 Influenza Vaccine (#1) 2025 09/16/2017 Alcohol/Substance Use Screening 08/21/2025 08/21/2024 Depression Screening 08/21/2025 08/21/2024, 08/21/19 25 SDOH Screening 08/21/2025 08/21/2024 Diabetes: Hemoglobin A1C 09/24/2025 025, 06/12/2025, 08/21/2024, Additional history exists Eye Exam 06/15/2026 06/15/2024, 05/28, 06/15/2024, Additional history exists Diabetes: Urine Protein Screening 06/26/2026 06/26/2025, 04/11/2024, 04/11/2024, Additional history exists Lipid Panel 06/26/2026 06/26/2025, 03/28, 09/15/2022, Additional history exists Tobacco Screening 06/26/2026 06/26/2025 RSV Patients and Patients Aged 60 years or older (1 - 1-dose 75+ series) 2029 DTaP/Tdap/Td Vaccines (4 - Td or Tdap) 03/04/2031 03/04/2021, 11/02/2017, 04/10/2010, Additional history exists Hepatitis B Vaccines Completed 08/03/2007, 03/31/2007, 03/03/2007 HIB Vaccines Aged Out No longer eligi ble based on patient's age to complete this topic HPV Vaccines Aged Out No longer eligi ble based on patient's age to complete this topic Hepatitis A Vaccines Aged Out No long er eligible based on patient's age to complete this topic IPV Vaccines Aged Out No longer eligi ble based on patient's age to complete this topic Meningococcal B Vaccine Aged Out No l onger eligible based on patient's age to complete this topic Meningococcal Vaccine Aged Out No milan bernie eligible based on patient's age to complete this topic RSV under 20 months Aged Out No longe r eligible based on patient's age to complete this topic Rotavirus Vaccines Aged Out No longer eligible based on patient's age to complete this topic Goals Goal Patient Goal Type Associated Problems [...] Care Plan Weekly blood pressure task No Biran Hutchinson Weekly blood pressure task Care Plan [...] blood pressure task No Tarka Shabana, OD Weekly blood pressure task Care Plan Weekly blood pressure task No Tarka Shabana, OD Patient has chronic kidney disease Care Plan Patient has chronic kidney disease No Tarka Shabana, OD Patient has chronic kidney disease Care Plan Patient has chronic kidney disease No Tarka Shabana, OD Weekly blood pressure task Care [...] Weekly blood pressure task No Taran Anderson [place] Weekly blood pressure task Care Plan Weekly blood pressure task No Taran Anderson [place] Patient has chronic kidney disease Care Plan Patient has chronic kidney disease No Taran Anderson [place] Patient has chronic kidney disease Care Plan Patient has chronic kidney disease No Taran Anderson MA Procedures Procedure Name Priority Date/Time Associated Diagnosis Comments C-REACTIVE PROTEIN Routine 06/26/2025 2: 53 PM EST AF (amaurosis fugax) ALBUMIN, RANDOM URINE W/CREATININE Routine 06/26/2025 2:53 PM EST Type 2 diabetes mellitus without complication, without long-term current use of insulin ([facility]) TSH W/REFLEX TO FT4 Routine 06/26/2025 2 :53 PM EST Type 2 diabetes mellitus without complication, without long-term current use of insulin ([facility]) LIPID PANEL, STANDARD Routine 06/26/2025 2:53 PM EST Type 2 diabetes mellitus without complication, without long-term current use of insulin ([facility]) HEMOGLOBIN A1C Routine 06/26/2025 2:53 PM EST Type 2 diabetes mellitus without complication, without long-term current use of insulin (HCC) COMPREHENSIVE METABOLIC PANEL Routine 06/26/2025 2:53 PM EST Type 2 diabetes mellitus without complication, without long-term current use of insulin ([facility]) CBC WITH AUTO DIFFERENTIAL Routine 06/26/2025 2:53 PM EST Type 2 diabetes mellitus without complication, without long-term current use of insulin ([facility]) POCT GLYCATED HEMOGLOBIN, TOTAL Routine 06/12/2025 1:08 PM EST Type 2 diabetes mellitus without complication, without long-term current use of insulin ([facility]) POCT GLUCOSE (CPT-65734) Routine 06/12/2025 1:07 PM EST Type 2 diabetes mellitus without complication, without long-term current use of insulin ([facility]) from Last 3 Months Results * TSH with Reflex to Free T4 (06/26/2025 2:53 PM EST) TSH reflex Free T4 1.79 0.32 - 4.0 uIU/mL [facility] Blood Venous blood specimen / Unknown 06/26/2025 2:53 PM EST 06/26/2025 4:16 PM EST us Faviola Kelly MD LAB BLOOD ORDERABLES Final Result Performing Organization Address [facility] Co de Phone Number [facility] [address] [place] [phone] * (ABNORMAL) Albumin, Random Urine W/Creatinine (06/26/2025 2:53 PM EST) Creatinine, Urine 36.05 mg/dL [facility] Microalbumin Urine 66.0 mg/L [facility] Microalbum Creatinine Ratio Ur 183.0(H) <30 ug/mg cr [facility] Comment:Albumin/Creatinine R atio Reference Ranges: Normal: < 30 ug/mg creatinine Microalbuminuria: 30 - 300 ug/mg creatinineClinical Albuminuria: > 300 ug/mg creatinine Urine (Urine, Random) 06/26/2025 2:53 PM EST 06/26/2025 4:15 PM EST us Faviola Kelly MD LAB URINE ORDERABLES Final Result Performing Organization Address [facility] Co de Phone Number [facility] [address] [place] [address] [phone] * (ABNORMAL) CBC auto differential (06/26/2025 2:53 PM EST) White Blood Count 11.2(H) 4.8 - 10.8 X10*3/uL [facility] Red Blood Count 4.64 4.20 - 5.50 X10*6/uL [facility] Hemoglobin 13.9 12.0 - 16.0 g/dl [facility] Hematocrit 41.0 37.0 - 47.0 % [facility] Mean Corpuscular Volume 88.4 80.0 - 98.0 fL [facility] Mean Corpuscular Hemoglobin 30.0 27.0 - 33.0 pg [facility] Mean Corpuscular HGB Conc 33.9 31.0 - 35.0 g/dl [facility] Red Cell Distribution Width 13.7 11.0 - 16.0 % [facility] Platelet Count 354 160 - 400 X10*3/uL [facility] Mean Platelet Volume 9.4 9.4 - 12.3 fL [facility] Neutrophils Percent Auto 62.4 45 - 73 % [facility] Imm Gran Pct Auto 0.4 0.0 - 0.4 % [facility] Lymphocytes Percent Auto 29.2 20 - 40 % [facility] Monocytes Percent Auto 5.8 2 - 11 % [facility] Eosinophils Percent Auto 1.2 0 - 4 % [facility] Basophils Percent Auto 1.0 0 - 2 % [facility] NRBC Pct Auto 0.0 0.0 - 0.2 /100WBC [facility] Neutrophils Absolute Auto 7.0 2.0 - 8.3 x10*3/uL [facility] Imm Gran Abs Auto 0.04(H) 0.00 - 0.03 X10*3/uL [facility] Lymphocytes Absolute Auto 3.3 1.2 - 4.9 X10*3/uL [facility] Monocytes Absolute Auto 0.7 0.1 - 1.2 X10*3/uL [facility] Eosinophils Absolute Auto 0.1 0.0 - 0.4 X10*3/uL [facility] Basophils Absolute Auto 0.1 0.0 - 0.2 X10*3/uL [facility] NRBC Abs Auto 0.000 0.0 - 0.012 X10*3/uL [facility] Blood Venous blood specimen / Unknown 06/26/2025 2:53 PM EST 06/26/2025 4:16 PM EST us Faviola Kelly MD LAB BLOOD ORDERABLES Final Result [facility] [address] [place] [address] [phone] * C-reactive Protein (06/26/2025 2:53 PM EST) C Reactive Protein 0.29 < or = 0.50 mg/dL [facility] Blood Venous blood specimen / Unknown 06/26/2025 2:53 PM EST 06/26/2025 4:16 PM EST us Sebastián Leal MD LAB BLOOD ORDERABLES Final Resul t Performing Organization Address [facility] Co de Phone Number [facility] [address] [place] [address] [phone] * (ABNORMAL) Hemoglobin A1c (06/26/2025 2:53 PM EST) Hemoglobin A1c 7.0(H) <6.0 % [facility] Comment:Hemoglobin A1C Refer ence Range Adults: 4.8 - 6.0 % Non diabetic: < 6.0 % Goal: < 7.0 %Additional Action Suggested: > 8.0 %Note: Hemoglobin A1c results are invalid for patients with abnormal amounts of HbF. Blood transfusions may impact the HbA1c concentration in the patient sample. Estimated Average Glucose 154 mg/dL [facility] Comment:eAG = Estimated ave rage glucose which is %A1C expressed asaverage glucose, using the formula of the [id number] Glucose study (ADAG), Diabetes Care, Vol.31,#8,Jan. 2007 Blood Venous blood specimen / Unknown 06/26/2025 2:53 PM EST 06/26/2025 4:16 PM EST us Faviola Kelly MD LAB BLOOD ORDERABLES Final Result Performing Organization Address City/[facility]/ZIP Co de Phone Number [facility] [address] [place] [address] [phone] * Lipid Panel, Standard (06/26/2025 2:53 PM EST) Triglycerides 88 <150 mg/dL [facility] Comment:Desirable Triglyceri de: less than 150 mg/dLBorderline High Triglyceride 150-199 mg/dLHigh Triglyceride: 200-499 mg/dLVery High Triglyceride: greater than or equal to 5OO mg/dL Cholesterol 157 <200 mg/dL [facility] Comment:Desirable Cholestero l: less than 200 mg/dLBorderline High Cholesterol: 200-239 mg/dLHigh Cholesterol: greater than 239 mg/dL LDL Cholesterol Calculated 56 <100 mg/dL [facility] Comment:Desirable LDL: less than 100 mg/dLNear Optimal/Above Optimal LDL: 110- 129 mg/dLBorderline High LDL: 130-159 mg/dLHigh LDL: 160-189 mg/dLVery High LDL: greater than or equal to 190 mg/dL HDL Cholesterol 84 >40 mg/dL [facility] Comment:Desirable HDL: great er than 40 mg/dL Note: This HDL assay may give artificially low results in patients with liver disease. Blood Venous blood specimen / Unknown 06/26/2025 2:53 PM EST 06/26/2025 4:16 PM EST us Faviola Kelly MD LAB BLOOD ORDERABLES Final Result [facility] [address] [place] [address] [phone] * (ABNORMAL) Comprehensive Metabolic Panel (06/26/2025 2:53 PM EST) Pathologist [facility] Sodium 141 135 - 145 mmol/L [facility] Potassium 3.5 3.3 - 5.1 mmol/L [facility] Chloride 104 96 - 108 mmol/L [facility] Carbon Dioxide 26 22 - 29 mmol/L [facility] Anion Gap 15 12 - 20 [facility] Urea Nitrogen (BUN) 10 9 - 16 mg/dL [facility] Creatinine, Serum 0.63 0.5 - 1.4 mg/dL [facility] Estimated Glomerular Filt Rate >60 [facility] Comment:Chronic Kidney Disea se: Estimated GFR < 60 mL/min/[id number] Kidney Disease: Estimated GFR < 15 mL/min/1.73m2 Glucose 128(H) 60 - 115 mg/dL [facility] Calcium 10.3(H) 8.4 - 10.2 mg/dL [facility] Bilirubin, Total 0.3 0.0 - 1.0 mg/dL [facility] Aspartate Amino Transferase 40(H) 5 - 31 U/L [facility] Alanine Aminotransferase 33(H) 0 - 31 U/L [facility] Total Protein 8.2(H) 6.5 - 8.0 g/dL [facility] Albumin Level 5.4(H) 3.5 - 5.0 g/dL [facility] Alkaline Phosphatase 88 39 - 117 U/L [facility] Blood Venous blood specimen / Unknown 06/26/2025 2:53 PM EST 06/26/2025 4:16 PM EST us Faviola Kelly MD LAB BLOOD ORDERABLES Final Result Performing Organization Address City/State/[facility] Co de Phone Number [facility] [address] [place], [place] [phone] * (ABNORMAL) POCT Hgb A1c (06/12/2025 1:08 PM EST) Hemoglobin A1C 7.1(A) 4.0 - 5.7 % QC Media Lot # [id number] Lot# Expiration Date Blood 06/12/2025 1:08 PM EST Faviola Kelly MD POINT OF CARE TEST EN TER/EDIT ORDERABLES Final Result * POCT Glucose (06/12/2025 1:07 PM EST) Glucose Blood, POC 118 60 - 200 mg/dL QC Media Lot # [id number] Lot# Expiration Date Blood Capillary blood specimen / Unknown 06/12/2025 1:07 PM EST us Favioal Kelly MD POINT OF CARE TEST EN TER/EDIT ORDERABLES Final Result from Last 3 Months Additional Health Concerns Active Problems Noted Date [...] 06/26/2025 Patient has chronic kidney disease 06/26/2025 Insurance [facility] [employer] MEDIC[place] [id number] * Guarantor: Faviola Johnson Account Type Relation to Patient Date of Phone Billing Address Personal/Family Self [address] [place] [address] * Guarantor: Faviola Johnson Account Type Relation to Patient Date of Phone Billing Address Personal/Family Self [address] [place] [address] Care Teams [employer] Supervisor Relationship Specialty Start Date End Date Faviola Boyce MD [address] [place] [address] PCP - General Internal Medicine 02/27/25
[2025-06-27 04:09] LABS: ~HepC Num1 0.10 S/CO (0.00-0.79); ~Hepatitis C Antibody Nonreactive (Nonreactive)
== END 2025-06-26 14:41 ==
LOC: HO.HHCL 14:40
PROVIDERS: Referring Provider Internal Medicine Geriatric Medicine; Visit Provider Internal Medicine
DX: E11.9 Type 2 diabetes mellitus without complications (principal); G45.3 Amaurosis fugax
CPT/HCPCS: 36415; 80053; 80061; 82043; 82570; 83036; 84443; 85025; 85652; 86140; 86803